=== PATIENT | female | born 1955 | race Caucasian/White ===

== ENCOUNTER 2017-09-27 17:30 | Emergency (ER) | payer OTHER ==
[~2017-09-27] VITALS: Ht 160 cm; Wt 56.7 kg
[2017-09-27 17:36] VITALS: BP 134/77
[2017-09-27] MEDS ORDERED: TDAP [DIPH/PERTUSSIS/TET] 0.5 ML VIAL IM ONE ×2 (18:18→18:30)
[2017-09-27] MEDS ORDERED: IBUPROFEN 600 MG TABLET PO ONE ×2 (18:18→18:30)
== END 2017-09-27 19:11 | disposition home or self-care (01) ==
LOC: ER 17:36
DX: S01.01XA Laceration without foreign body of scalp, initial encounter (principal); W07.XXXA Fall from chair, initial encounter; Y93.89 Activity, other specified; Y92.89 Other specified places as the place of occurrence of the external cause; Y99.8 Other external cause status; F32.9 Major depressive disorder, single episode, unspecified
CPT/HCPCS: 90715; A4606; A6402; Z7610

== ENCOUNTER 2024-09-23 23:11 | Emergency (ER) | payer OTHER ==
[~2024-09-23] VITALS: Ht 157.5 cm; Wt 46.7 kg
[2024-09-24] MEDS ORDERED: ONDANSETRON HCL/PF 4 MG/2 ML VIAL ONE (00:20)
[2024-09-24] MEDS ORDERED: MAG HYDROX/AL HYDROX/SIMETH 30 ML UDC ONE (00:20)
[2024-09-24] MEDS ORDERED: LIDOCAINE VISCOUS 2% UD 15 ML UDC ONE (00:20)
[2024-09-24] MEDS: ONDANSETRON HCL/PF 4 MG/2 ML VIAL IM ONE (00:21)
[2024-09-24] MEDS: LIDOCAINE VISCOUS 2% UD 15 ML UDC MM ONE (00:21)
[2024-09-24] MEDS: MAG HYDROX/AL HYDROX/SIMETH 30 ML UDC PO ONE (00:21)
[2024-09-24] MEDS ORDERED: ONDA4TAB5 PO (01:25)
[2024-09-24 01:51] VITALS: BP 126/84; TEMP 97.8; O2SAT 99
== END 2024-09-24 01:52 | disposition home or self-care (01) ==
LOC: ER 23:26
DX: K21.9 Gastro-esophageal reflux disease without esophagitis (principal); E11.9 Type 2 diabetes mellitus without complications; R11.0 Nausea; R94.31 Abnormal electrocardiogram [ECG] [EKG]; Z60.2 Problems related to living alone
CPT/HCPCS: 99283; 96372; 93005; J2405

== ENCOUNTER 2024-10-02 15:25 | Emergency (ER) | payer OTHER ==
[~2024-10-02] VITALS: Ht 157.5 cm; Wt 47.6 kg
[~2024-10-02 15:25] MED LIST: ONDA4TAB5 PO
[2024-10-02] MEDS: IV NS 0.9% 1,000 ML BAG IV ONE (17:00)
[2024-10-02] MEDS ORDERED: MORPHINE SULFATE INJ 4 MG/ML DISP.SYRIN ONE ×2 (17:03→19:48)
[2024-10-02] MEDS ORDERED: ONDANSETRON HCL/PF 4 MG/2 ML VIAL ONE ×2 (17:03→19:54)
[2024-10-02] MEDS: ONDANSETRON HCL/PF 4 MG/2 ML VIAL IVP ONE (17:07)
[2024-10-02] MEDS: MORPHINE SULFATE INJ 2 MG/ML DISP.SYRIN IV ONE ×2 (17:08→19:50)
[2024-10-02 17:18] LABS: CALCIUM, SERUM 9.3 mg/dL (8.5-10.1); CREATININE 0.8 mg/dL (0.6-1.3); POTASSIUM 3.8 mmol/L (3.5-5.1)
[2024-10-02 17:23] LABS: BILIRUBIN,DIRECT 0.2 mg/dL (0.0-0.2); BILIRUBIN,TOTAL 0.6 mg/dL (0.2-1.0); TOTAL PROTEIN, SERUM 7.4 g/dL (6.4-8.2)
[2024-10-02] MEDS ORDERED: IV NS 0.9% 250 ML IV ONE (17:28)
[2024-10-02] MEDS ORDERED: CT SWABBABLE VALVE TRANS SET 1 EA INFUS.SET MC ONE (17:28)
[2024-10-02] MEDS ORDERED: IOHEXOL-300 100 ML VIAL IV ONE (17:28)
[2024-10-02 17:35] LABS: BASOPHILS # (AUTO) 0.1 K/uL (0.0-0.2); BASOPHILS % (AUTO) 0.6 % (0.0-2.0); EOSINOPHILS % (AUTO) 0.3 % (0.0-6.0); HEMATOCRIT 40 % (33-45); HEMOGLOBIN 13.5 g/dL (11.5-14.8); LYMPHOCYTES # (AUTO) 0.9 K/uL (0.8-4.8); LYMPHOCYTES % (AUTO) 10.5 % (20.0-44.0); MEAN CORPUSCULAR HEMOGLOBIN 30 PG (26.0-33.0); MEAN CORPUSCULAR HGB CONC 34 g/dl (31.0-36.0); MEAN CORPUSCULAR VOLUME 90 fL (82-100); MONOCYTES # (AUTO) 0.3 K/uL (0.1-1.30); NEUTROPHILS # (AUTO) 7.3 K/uL (1.8-8.9); NEUTROPHILS % (AUTO) 85.6 % (43.0-81.0); RED BLOOD CELL COUNT(AUTO) 4.46 MIL/uL (4.0-5.2); WHITE BLOOD COUNT (AUTO) 8.6 K/uL (4.3-11.0)
[2024-10-02 19:06] LABS: PLATELET COUNT (AUTO) 242 K/uL (150-450)
[2024-10-02] MEDS: ONDANSETRON HCL/PF 4 MG/2 ML VIAL IV ONE (19:57)
[2024-10-03] MEDS ORDERED: LORAZEPAM INJ 2 MG/ML VIAL ONE (00:38)
[2024-10-03] MEDS: LORAZEPAM INJ 2 MG/ML VIAL IV ONE (00:39)
[2024-10-03 13:55] VITALS: BP 124/78; TEMP 98.4; O2SAT 98
== END 2024-10-03 13:30 | disposition short-term general hospital (02) ==
LOC: ER 15:28
DX: K31.89 Other diseases of stomach and duodenum (principal); R10.13 Epigastric pain; E11.9 Type 2 diabetes mellitus without complications; Z20.822 Contact with and (suspected) exposure to COVID-19; Z60.2 Problems related to living alone
CPT/HCPCS: 99291; 74177; 96374; 96361; 96375 ×2; 87426; 96376; 85025; 80048; 83605; 83690; 80076; 36415; J2270 ×2; J2405 ×2; J7030; J7050; Q9967; J2060